=== PATIENT | female | born 1995 | race African-American/Black ===

== ENCOUNTER 2025-01-07 10:47 | Emergency (ER) | payer SELFPAY ==
[~2025-01-07] VITALS: Ht 175.3 cm; Wt 99.0 kg
[2025-01-07 10:50] VITALS: O2SAT 98
[2025-01-07 10:53] VITALS: BP 127/79; PULSE 93; RESP 18; TEMP 36.8; O2SAT 98
[2025-01-07] MEDS ORDERED: AMOX1TAB16 MT (11:21)
[2025-01-07] MEDS ORDERED: IBUP-2029 PO (11:21)
[2025-01-07] MEDS ORDERED: TOPUD PO (11:21)
== END 2025-01-07 11:48 | disposition home or self-care (01) ==
LOC: ER 10:47
DX: B97.89 Other viral agents as the cause of diseases classified elsewhere (principal)
CPT/HCPCS: 99283